=== PATIENT | female | born 1950 | race Caucasian/White ===

== ENCOUNTER 2024-11-27 21:11 | Emergency (ER) | payer MEDICARE, OTHER ==
[~2024-11-27] VITALS: Ht 162.6 cm; Wt 68.0 kg
[2024-11-27] MEDS ORDERED: KETOROLAC TROMETHAMINE 30 MG/ML SDV IV ONE (21:25)
[2024-11-27] MEDS ORDERED: ACETAMINOPHEN 500 MG TAB PO ONE (21:25)
[2024-11-27 22:52] VITALS: BP 163/74
== END 2024-11-27 22:52 | disposition home or self-care (01) | DRG 605 ==
LOC: ED 21:11
DX: S00.83XA Contusion of other part of head, initial encounter (principal); S70.12XA Contusion of left thigh, initial encounter; S70.11XA Contusion of right thigh, initial encounter; I10 Essential (primary) hypertension; I48.91 Unspecified atrial fibrillation; W10.9XXA Fall (on) (from) unspecified stairs and steps, initial encounter; Y92.009 Unspecified place in unspecified non-institutional (private) residence as the place of occurrence of the external cause; Z86.73 Personal history of transient ischemic attack (TIA), and cerebral infarction without residual deficits